=== PATIENT | male | born 1995 | race African-American/Black ===

== ENCOUNTER 2019-09-03 17:42 | Emergency (ER) | payer SELFPAY ==
[~2019-09-03] VITALS: Ht 172.7 cm; Wt 61.2 kg
[2019-09-03 18:15] VITALS: BP 115/74
--- NOTE | 2019-09-03 18:20 | NUR ---
ED Nurse Note: Patient walked into ED from home c/o bilateral eye pain since . patient reports he feels pressure on the right eye and left eye is sensitive to light. patient is a/o x4 ambulatory, breathing unlabored and even, speaking in full sentences.
[2019-09-03] MEDS ORDERED: Ketorolac 30mg Inj IM ONE (18:45)
--- NOTE | 2019-09-03 19:11 | Diagnostic Imaging Report ---
Indication: Periorbital pain Technique: Continuous helical CT scanning of the head was performed without intravenous contrast material. Axial and coronal 5 mm sections were generated. Radiation dose was minimized using automated exposure control Dose: Total Dose Length Product - DLP [address] Dose Index - CTDIvol(s) 60 mGy. Comparison: none Findings: The ventricular system is normal in size and configuration. There is no shift of midline structures. No abnormal extra-axial fluid collections are noted. There is no evidence of intracerebral bleeding. No other abnormal high or low density areas are noted within the brain. Normal romano-white differentiation. Visualized orbits and sinuses are unremarkable. The mastoids are clear. The calvarium is intact Impression: Normal CT scan of the head without contrast material. This agrees with the preliminary interpretation provided overnight by [facility]. The CT scanner at [facility] is accredited by the [employer] and the scans are performed using protocols designed to limit radiation exposure to as low as reasonably achievable to attain images of sufficient resolution adequate for diagnostic evaluation.
--- NOTE | 2019-09-03 19:17 | Emergency Room Report ---
History of Present Illness General Chief Complaint: Eye Problems Source: Patient Present Illness HPI 23-year-old male with no symptom past medical history who smokes marijuana here complaining of 2 days of a 10 out of 10 bilateral headache, photophobia, and eye redness with yellow discharge. Denies any fall or injury to the head, denies loss of consciousness complains of nausea however denies vomiting. Patient has been sunglasses in the room. Denies history of migraine headaches. Denies motor or neurological deficits. Denies any changes in gait, vertigo, tinnitus. Denies urinary symptoms. Reports that 2 years ago he had sinus surgery. Has not taken medication other than Tylenol and Tylenol 3 for pain which reports that also made him more nauseated. Allergies: Coded Allergies: Dust (Verified Allergy, Unknown, 09/03/19) Patient History Past Medical History: see triage record Past Surgical History: none Pertinent Family History: none Social History: Reports: smoking Immunizations: UTD Reviewed Nursing Documentation: PMH: Agreed; PSxH: Agreed Nursing Documentation-PMH Past Medical History: No Stated History Review of Systems All Other Systems: negative except mentioned in HPI Physical Exam Vital Signs Date Time Temp Pulse Resp B/P (MAP) Pulse Ox O2 Delivery O2 Flow Rate FiO2 09/03/19 18:15 98.2 82 16 115/74 (88) 97 Room Air Sp02 EP Interpretation: reviewed, normal General Appearance: no apparent distress, alert, GCS 15, non-toxic Head: normocephalic, atraumatic Eyes: bilateral eye normal inspection, bilateral eye PERRL ENT: hearing grossly normal, normal pharynx, no angioedema, normal voice Neck: full range of motion, supple/symm/no masses Respiratory: chest non-tender, lungs clear, normal breath sounds, no rhonchi, speaking full sentences Cardiovascular #1: regular rate, rhythm, no edema, no murmur Gastrointestinal: non tender, soft Genitourinary: no CVA tenderness Musculoskeletal: back normal Neurologic: alert, motor strength/tone normal, oriented, distal neuro normal, oriented x3, sensory intact, responsive, speech normal Psychiatric: normal inspection, judgement/insight normal, memory normal Skin: no rash Lymphatic: normal inspection, no adenopathy Medical Decision Making PA Attestation Diagnosis and treatment plans were reviewed and discussed with my supervising physician Dr. Hannah Diagnostic Impression: Primary Impression: Migraine headache Additional Impression: Bacterial conjunctivitis ER Course 23-year-old male with no symptom past medical history who smokes marijuana here complaining of 2 days of a 10 out of 10 bilateral headache, photophobia, and eye redness with yellow discharge. Denies any fall or injury to the head, denies loss of consciousness complains of nausea however denies vomiting. Patient has been sunglasses in the room. Denies history of migraine headaches. Denies motor or neurological deficits. Denies any changes in gait, vertigo, tinnitus. Denies urinary symptoms. Reports that 2 years ago he had sinus surgery. Has not taken medication other than Tylenol and Tylenol 3 for pain which reports that also made him more nauseated. Ddx considered but are not limited to: Migraine headache with aura, migraine headache without aura, tension headache, cluster headache, TBI, subarachnoid hemorrhage Vital signs: are WNL, pt. is afebrile H&PE are most consistent with: Migraine headache without aura, bacterial conjunctivitis ORDERS: Ofloxacin eyedrops, Excedrin, Motrin, Zofran, head CT scan no contrast to rule out any mass ER intervention: Toradol DISCHARGE: At this time pt. is stable for d/c to home. Will provide printed patient care instructions, and any necessary prescriptions. Care plan and follow up instructions have been discussed with the patient prior to discharge. Patient to follow-up with primary care provider for referral to neurologist for proper diagnosis of migraine headache versus tension headache. If worsening symptoms return to emergency room. CT/MRI/US Diagnostic Results CT/MRI/US Diagnostic Results : Imaging Test Ordered: Head CT no contrast Impression CT HEAD Without Contrast: No ICH, mass effect or edema. No evidence of acute cortical stroke. Visualized sinuses and mastoid air cells are clear. Last Vital Signs Date Time Temp Pulse Resp B/P (MAP) Pulse Ox O2 Delivery O2 Flow Rate FiO2 09/03/19 18:15 98.2 82 16 115/74 97 Room Air Disposition: HOME, SELF-CARE Condition: Stable Scripts Ofloxacin (Ofloxacin) 5 Ml Drops 2 DROP OP Q6H for 7 Days, #5 ML Prov: Hali Malone 09/03/19 Ondansetron (Zofran) 4 Mg Tablet 4 MG ORAL Q6H PRN for Nausea & Vomiting, #14 TAB Prov: Hali Malone 09/03/19 Aspirin/Acetaminophen/Caffeine (EXCEDRIN EXTRA STRENGTH CAPLET) 1 Each Tablet 1 EACH PO DAILY, #30 TAB Prov: Hali Malone 09/03/19 Ibuprofen* (MOTRIN*) 600 Mg Tablet 600 MG ORAL Q6H PRN for For Pain, #30 TAB Prov: Hali Malone 09/03/19 Referrals: NOT CHOSEN IPA/MD,REFERRING (PCP) Patient Instructions: Bacterial Conjunctivitis, [id number], Migraine Headache , [id number] Additional Instructions: Take medication as directed, follow-up with your primary care provider possible MRI may be needed, you need to be sent to neurologist to be properly diagnosed with migraine versus tension versus cluster headache. Avoid smoking marijuana has been well exacerbate your symptoms. Return to the emergency room for worsening symptoms Hali Malone Sep 03, 2019 19:17
[2019-09-03] MEDS ORDERED: OFLOXACIN10 ML OP (19:18)
[2019-09-03] MEDS ORDERED: EXCEDRIN EXTRA1 EAC1 PO (19:18)
[2019-09-03] MEDS ORDERED: IBUPROFEN600 MG ORAL (19:18)
[2019-09-03] MEDS ORDERED: ZOFRAN4 M1 ORAL (19:18)
--- NOTE | 2019-09-03 19:29 | NUR ---
HAND-OFF: Report given to Betsy MEHTA.
[2019-09-03 19:31] VITALS: BP 115/74
--- NOTE | 2019-09-03 19:31 | NUR ---
ED Nurse Note: pt cleared to be d/c per ERMD, pt discharge and aftercare instruction provided w/ prescription, pt education done via discussion and handout, pt advised to follow up with opthamologist or return to ed if changes in condition, vss, ambulatory w/ steady gait, left w/ all belongings.
== END 2019-09-03 19:31 | disposition home or self-care (01) ==
LOC: EMR 18:51
DX: G43.909 Migraine, unspecified, not intractable, without status migrainosus (principal); H10.9 Unspecified conjunctivitis; F17.200 Nicotine dependence, unspecified, uncomplicated; F12.90 Cannabis use, unspecified, uncomplicated
CPT/HCPCS: 70450; 96372; 99284; J1885

== ENCOUNTER 2019-10-05 21:32 | Emergency (ER) | payer SELFPAY ==
[~2019-10-05] VITALS: Ht 172.7 cm; Wt 59.0 kg
[~2019-10-05 21:32] MED LIST: EXCEDRIN EXTRA1 EAC1 PO; IBUPROFEN600 MG ORAL; OFLOXACIN10 ML OP; ZOFRAN4 M1 ORAL
[2019-10-05 21:45] VITALS: BP 121/78
--- NOTE | 2019-10-05 21:45 | NUR ---
ED Nurse Note: Pt walked into ED c/o toothache to left upper jaw. Pt stated the pain radiates to left side of his head. Pt stated he took motrin but not effective. Denies difficulty swallowing. Not in any distress.
[2019-10-05] MEDS ORDERED: PENICILLIN V P500 MG PO (22:40)
--- NOTE | 2019-10-05 22:40 | Emergency Room Report ---
History of Present Illness General Chief Complaint: Toothache Source: Patient Present Illness HPI 23-year-old male presents with left bottom molar pain x2 days, pain with eating , relieved with rest severity is moderate, intermittent no fevers no chills, patient endorses left-sided headache as well, patient presents for evaluation Allergies: Coded Allergies: Dust (Verified Allergy, Unknown, 09/03/19) Patient History Past Medical History: see triage record Reviewed Nursing Documentation: PMH: Agreed; PSxH: Agreed Nursing Documentation-PMH Past Medical History: No Stated History Review of Systems All Other Systems: negative except mentioned in HPI Physical Exam Vital Signs Date Time Temp Pulse Resp B/P (MAP) Pulse Ox O2 Delivery O2 Flow Rate FiO2 10/05/19 21:36 97.7 58 16 121/78 (92) 98 Room Air General Appearance: well appearing, no apparent distress Head: normocephalic, atraumatic Eyes: bilateral eye PERRL, bilateral eye EOMI ENT: hearing grossly normal, normal voice, other - Back bottom molar caries present Neck: full range of motion, supple Respiratory: no respiratory distress, speaking full sentences Musculoskeletal: gait/station normal Neurologic: alert, normal gait Psychiatric: mood/affect normal Skin: no rash Medical Decision Making Diagnostic Impression: Primary Impression: Dental caries ER Course 23-year-old male presents with left tooth infection, referral to dentist given will start antibiotics disposition home with return precautions Last Vital Signs Date Time Temp Pulse Resp B/P (MAP) Pulse Ox O2 Delivery O2 Flow Rate FiO2 10/05/19 21:45 97.7 58 16 121/78 98 Room Air Disposition: HOME, SELF-CARE Condition: Stable Scripts Penicillin V Potassium* (PENVK*) 500 Mg Tablet 500 MG PO Q6H, #28 TAB 0 Refills Prov: Devin Hannah MD 10/05/19 Referrals: [facility] Patient Instructions: Dental Caries, [id number] Additional Instructions: The patient was provided with discharge instructions, notified to follow-up with a primary care doctor and or specialist in the next 24-48 hours, and to return to the ED if they have worsening of their symptoms. Please note that this report is being documented using [employer] technology. This can lead to erroneous entry secondary to incorrect interpretation by the dictating instrument. Devin Hannah MD Oct 05, 2019 22:40
[2019-10-05] MEDS ORDERED: oxyCODONE HCL/Acetaminophen 5/325mg ORAL ONE (22:45)
[2019-10-05] MEDS ORDERED: Ondansetron ODT 8mg tab ORAL ONE (22:45)
[2019-10-05] MEDS ORDERED: Penicillin Vk 250mg tab ORAL ONE (22:45)
[2019-10-05] MEDS ORDERED: Ketorolac 30mg Inj IM ONE (22:45)
[2019-10-05 23:02] VITALS: BP 121/78
--- NOTE | 2019-10-05 23:02 | NUR ---
ED Nurse Note: Pt cleared by ERMD for discharge. DC instructions/prescription was given and explained to pt and verbalized understanding of teachings. All medical deviecs such as ID band removed. Pt is AAO x4, ambulatory and left with all personal belongings.
== END 2019-10-05 23:02 | disposition home or self-care (01) ==
LOC: EMR 22:15
DX: K02.9 Dental caries, unspecified (principal); Z91.09 Other allergy status, other than to drugs and biological substances
CPT/HCPCS: 96372; 99283; J1885; Q0162; C9399

== ENCOUNTER 2019-11-02 08:45 | Emergency (ER) | payer SELFPAY ==
[~2019-11-02] VITALS: Ht 172.7 cm; Wt 61.2 kg
[~2019-11-02 08:45] MED LIST changes: +PENICILLIN V P500 MG PO
--- NOTE | 2019-11-02 08:58 | NUR ---
ED Nurse Note: Pt walked into ED w/ c/o toothache pain on R side. Pt has 10/10 pain R wisdom tooth. Tooth has breached the surface. Pt states he hasn't seen dentist for 2 to 3 years. Slight swelling R side of face. Pt is alert and orientedx4, ambulatory.
[2019-11-02 08:59] VITALS: BP 113/56
[2019-11-02] MEDS ORDERED: PENICILLIN V P500 MG ORAL (09:20)
[2019-11-02] MEDS ORDERED: ACETAMINOPHEN-1 EAC1 ORAL (09:20)
[2019-11-02] MEDS ORDERED: Penicillin Vk 250mg tab ORAL ONE (09:30)
[2019-11-02] MEDS ORDERED: Lidocaine 2% Visc 15ml soln ORAL ONE (09:30)
--- NOTE | 2019-11-02 09:41 | NUR ---
ER DISCHARGE NOTE: Patient is cleared to be discharged per ERMD, pt is aox4, on room air, with stable vital signs. pt was given dc and prescription instructions, pt was able to verbalize understanding, pt id band removed. pt is able to ambulate with steady gait. pt took all belongings. Pt educated about oral surgery adn making appt.
[2019-11-02 09:43] VITALS: BP 125/70
--- NOTE | 2019-11-02 09:46 | Emergency Room Report ---
History of Present Illness General Chief Complaint: Toothache Source: Patient Present Illness HPI Patient is a 24-year-old male presents after increased left-sided lower mandible tooth ache. He reports having prior history of wisdom tooth problems. He states this is been intermittently a longstanding problem. He denies any fever recently. He had increased pain to the left side of his mouth. He denies any other locations of pain. He had not been having any fever. He reports having some increased swelling to the inside of his mouth. he denies any voice changes. Reports having a moderate headache. Denies other locations of pain. Allergies: Coded Allergies: Dust (Verified Allergy, Unknown, 09/03/19) Patient History Reviewed Nursing Documentation: PMH: Agreed; PSxH: Agreed Nursing Documentation-PMH Past Medical History: No Stated History Review of Systems All Other Systems: negative except mentioned in HPI Physical Exam Vital Signs Date Time Temp Pulse Resp B/P (MAP) Pulse Ox O2 Delivery O2 Flow Rate FiO2 11/02/19 08:48 97.9 87 19 118/57 (77) 98 Room Air General Appearance: well appearing, no apparent distress, alert, GCS 15 Head: normocephalic, atraumatic ENT: hearing grossly normal, normal voice Neck: full range of motion, supple Respiratory: lungs clear, normal breath sounds, no respiratory distress, speaking full sentences Cardiovascular #1: normal peripheral pulses, regular rate, rhythm, no edema Musculoskeletal: no calf tenderness Neurologic: normal gait Psychiatric: mood/affect normal Skin: no rash Medical Decision Making Diagnostic Impression: Primary Impression: Pain, dental ER Course Patient presented for dental pain. Differential diagnosis include was not limited to dental caries, abscess, among others. Patient was noted to have no evidence of acute injury. Patient does not have any trismus. Appears to have some slight dental infection. He was advised to follow-up with oral surgeon. The patient is advised to follow up with primary care doctor in 1-2 days. Patient is advised to return if any worsening condition or if any changes in status that are concerning. This report is dictated with [employer] labor relations analyst software which may occasionally lead to discrepancies related to use of this software. Last Vital Signs Date Time Temp Pulse Resp B/P (MAP) Pulse Ox O2 Delivery O2 Flow Rate FiO2 11/02/19 08:59 97.9 80 21 113/56 96 Room Air Status: improved Disposition: HOME, SELF-CARE Condition: Stable Scripts Acetaminophen With Codeine (T#3) (TYLENOL #3 TAB*) Y Tab 1 TAB ORAL Q8H PRN for For Pain, #12 TAB Prov: Isreal Valles MD 11/02/19 Penicillin V Potassium* (PENVK*) 500 Mg Tablet 500 MG ORAL TWICE A DAY, #14 TAB Prov: Isreal Valles MD 11/02/19 Patient Instructions: Dental Pain Additional Instructions: Follow up with oral surgery tomorrow. Take antibiotics and pain medication as prescribed. Isreal Valles MD Nov 02, 2019 09:46
== END 2019-11-02 09:44 | disposition home or self-care (01) ==
LOC: EMR 09:05
DX: K08.89 Other specified disorders of teeth and supporting structures (principal)
CPT/HCPCS: 99282; C9399